=== PATIENT | female | born 1985 | race Caucasian/White ===

== ENCOUNTER 2024-01-02 13:07 | Outpatient (CLI) | payer OTHER, SELFPAY ==
--- NOTE | 2024-01-02 13:23 | ECG_ITS ---
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 Measurements Intervals [place] Rate: 66 P: 23 NH: 134 QRS: 11 QRSD: 98 T: 32 QT: 403 QTc: 422 Interpretive Statements SINUS RHYTHM NORMAL ELECTROCARDIOGRAM No previous ECG available for comparison Electronically Signed On 01-02-2024 14:59:39 CDT by Shaw Kraft M.D.
[2024-01-02 13:37] LABS: Hematocrit 43.2 % (37.0-47.0); Hemoglobin 14.9 g/dL (12.0-15.0)
== END 2024-01-02 13:08 | disposition home or self-care (01) ==
LOC: ANHSURGERY 13:14
PROVIDERS: Anesthesiology; Visit Provider Surgery Plastic and Reconstructive Surgery
DX: Z01.818 Encounter for other preprocedural examination (principal); Z41.1 Encounter for cosmetic surgery
CPT/HCPCS: 36415; 85014; 85018; 93005

== ENCOUNTER 2024-01-13 00:52 | Day surgery (SDC) | payer OTHER, SELFPAY ==
[2023-12-30 14:11] VITALS: BMI 26.8
--- NOTE | 2023-12-30 14:23 | PC.NURSE ---
Report to the Outpatient Waiting Room, entrance under the green pavilion located off [facility], at time 0600 on date 01/13/2024. Planned Procedure Time: 7:30a.m. Time changes happen often and if your time is changed the preop area will call you the afternoon before. - You and your visitor will be asked to self-screen and do not enter if you have any COVID symptoms. - A mask is optional within the hospital at this time. Patients may have clear liquids (water, carbonated beverages, clear teas, apple juice) until 3 hours prior to surgery with a maximum of 20 ounces. - No food from midnight until time of surgery - Infants may have breast milk until 4 hours before surgery, formula 6 hours prior to surgery. - Children will be allowed to drink immediately following surgery. If applicable, please bring a bottle or sippy cup to assist with drinking. Juice, water, soda, and popsicles are readily available. For infants on formula, please bring formula the day of surgery. Pacifiers are allowed. Take the following medications with a SIP of water the morning of surgery: N/A DO NOT STOP ANY OF YOUR OTHER PRESCRIPTION MEDICATIONS PRIOR TO SURGERY ?EXCEPT THE FOLLOWING Medications to discontinue per physician N/A Date to take last dose: N/A Please no make-up, nail welsh, hairspray, perfume, deodorant, or body powder the day of surgery. No jewelry (including any body piercings) or valuables the day of surgery, leave them at home. Please take a shower or bath the night before, or the morning of, surgery with an antibacterial soap. Wear comfortable, loose fitting clothing. Children are encouraged to wear pajamas. - Jewelry must be removed prior to entering the operating room. Rings and piercings that are not removed may be cut off. - The hospital will not accept responsibility for valuables. - Please leave all valuables, including medications, at home the day of surgery. If you are going home after surgery, a licensed bulk driver must drive you home. - NO public transportation without another adult if you receive anesthesia. - We recommend that an adult stay with you for 24 hours following discharge. - We also recommend that you do not drive, make important decision, drink alcoholic beverages, or take any drugs that were not prescribed by your health care provider for at least 24 hours after your discharge time. For Pediatric surgeries, we recommend two adults accompany the child home. Follow any additional instructions given to you from your surgeon. If you or anyone in your household have experienced Covid symptoms in the past week, please notify your surgeon or the nurse liaison at the phone number below for possible testing. Telephone instructions given to Loreta Dacosta and asked if any additional questions and then verbalized understanding. Patient advised to call surgeon office or pre surgery nurse liaison [phone] if any additional questions.
[2024-01-13] VITALS (11 sets, daily range): BP systolic 101–127; BP diastolic 60–83; PULSE 85–113; RESP 14–18; TEMP 36.4; O2SAT 97–100; BMI 26.2
[2024-01-13 06:39] LABS: Urine Cotinine NEGATIVE
[2024-01-13] MEDS: LACTATED RINGERS 1,000 ML 30 ML IV CONT ×2 (06:49→13:30)
--- NOTE | 2024-01-13 07:23 | P.PNAN_ITS ---
Anes - Initial Pre Proc Eval Procedure: Operation Date: 01/13/24 07:30 Proposed Procedures p Bilateral Breast Implant Removal with Capsulectomy - Aaron Dickinson MD s Bilateral Breast Mastopexy - Aaron Dickinson MD s Abdominoplasty with Liposuction - Aaron Dickinson MD Date/Time: 01/13/24 07:23 Surgeon: Aaron Dickinson MD Pre Op Diagnosis: breast ptosis, skin laxity, hx of breast aug Patient Data Age: 38 Gender: F Height: 1.65 m Weight: 71.45 kg Last Vital Signs Temp 97.6 F 01/13/24 06:43 Pulse 85 01/13/24 06:43 Resp 16 01/13/24 06:43 BP 120/83 01/13/24 06:43 Pulse Ox 100 01/13/24 06:43 O2 Del Method Room Air 01/13/24 06:43 Allergies Allergy/AdvReac Type Severity Reaction Status Date / Time cefaclor [From Ceclor] Allergy Hives Verified 12/30/23 14:09 Home Medications Medication Instructions Recorded Confirmed Type No Home Medications 12/30/23 01/13/24 History Laboratory Tests 01/13/24 06:22 Cotinine Negative Patient hx anesthesia problems: post op nausea/vomiting Family hx anesthesia problems: none Results Review: All pre-operative results and documents have been reviewed as part of the pre- operative evaluation. [facility] Social History Social History Smoking status: Never smoker Alcohol intake: current Alcohol use details: Ocassional Substance use: never Substance use type: does not use Living arrangements: with family Anes - Eval Final PreProcedure Day of Procedure 01/13/24 07:23 Patient weight: normal Heart: regular rate and rhythm Lungs: clear to auscultation Airway: Mallampati scale class II Neurological: alert and oriented Last oral intake: >/= 8 hours ASA classification: I Emergent: no Anesthetic plan: proceed Anesthesia type and monitoring: general ETT and standard monitoring Results Review: All pre-operative results and documents have been reviewed as part of the pre- operative evaluation. Informed Consent: The patient's anesthetic plan and its attendant risks and benefits were discussed with the patient/family/POA. Questions were solicited and answers provided to the satisfaction of the patient/family/POA.
--- NOTE | 2024-01-13 07:23 | WPDHPUPDATE1 ---
History and Physical Update Update Date/Time: 01/13/24 07:23 History and Physical has been reviewed, including an updated exam of the patient. There are NO changes in the patient's condition. Risks, benefits, and alternatives have been discussed and questions answered. Patient agrees to proceed with procedure.
--- NOTE | 2024-01-13 07:23 | W.PM.PROC2 ---
Procedure Note - Detailed Date of Procedure 01/13/24 Pre-op Diagnosis breast ptosis, skin laxity, hx of breast aug Post-op Diagnosis Same Procedure Performed 1. Bilateral breast implant removal with capsulectomy. 2. Bilateral mastopexy 3. Progressive tension abdominoplasty with suction lipectomy Surgeon Aaron Dickinson MD Anesthesia General Findings Previous implants: Smooth saline. No worrisome features. Inverted T Superior Pedicle Tissue removed: 1586.6 grams Lipoaspirate: 2650 cc Description of Procedure They are here today for the above procedures. Previously and again today the risks, benefits, alternatives were discussed in extensive detail. I wanted them to be very realistic about the risks involved as well as expectations. She states she would be happy with breasts the same size or even smaller stating you can't make me too small . We discussed aftercare and what to monitor for. I was very upfront about the risks of wound breakdown leading to loss of skin, open wounds, and need for additional procedures with permanent abdominal deformity. We discussed DVT/PE risks and management. Made sure answered all of their questions to their satisfaction today and consent was obtained. They were marked in the preoperative holding area with their verification. The patient was taken to the operating room. Anesthesia was provided by anesthesiology. A Edwards catheter was started. Posterior Placed prone on the operating room table with care taken to protect from injury. Prepped and draped in a standard sterile fashion. A surgical time-out was taken. Stab incisions were made and tumescent solution was infiltrated. Once adequate time was allowed for hemostasis a 5mm basket and 3mm multi hole cannula were utilized to complete suction lipectomy based on S.A.F.E. technique in multiple planes and passes. Suction lipectomy continued to result based on pre-operative planning, intra-operative observation, and rolling pinch test which were in full agreement. Port sites closed with 3-0 Nylon. Band-aid placed. Breast Patient was then placed supine with care taken to protect from injury. Eleven blade was utilized to make a stab incision and infiltrated with low volume tumescent solution laterally. A 10 blade was used to make an incision along the IMF and dissection continued until the capsule was identified. I elevated superficial to the capsule and removed a significant portion of the capsule and implant. Copiously irrigated with saline solution on TUR tubing. Verified a strict hemostasis. I tailor tacked the breast into position. Placed her in a sitting position. Verified the nipple-areolar location based on preoperative planning as well as intraoperative observations and measurements in full agreement. She was placed supine. I de-epithelialized the pedicle. I elevated medial and lateral tissue flaps as well for planned closure. The autoaugmentation flap was sutured to the chest wall with 2-0 PDS. I closed along the IMF with 2-0 Stratafix. Along the vertical with 2-0 PDS. I closed around the Kwesi with 3-0 strata fix. 3-0 Monocryl along the vertical. 3-0 Stratafix along the IMF. I finally closed everything with running subcuticular 4-0 Monocryl and tissue glue. Abdomen I placed the patient in a flexed position to verify the upper and lower markings would reach. I then placed supine. A thorough abdominal examination was completed. Stab incisions were made and tumescent solution infiltrated. Stab incisions were made and tumescent solution was infiltrated. Once adequate time was allowed for hemostasis a 5mm basket and 3mm multi hole cannula were utilized to complete suction lipectomy based on S.A.F.E. technique in multiple planes and passes. Suction lipectomy continued to result based on pre-operative planning, intra-operative observation, and rolling pinch test which were in full agreement. A 10 blade was used to
[2024-01-13] MEDS: CLINDAMYCIN 900 MG/D5W 50 ML 900 MG/50 ML PIGGYBACK 50 MG IVPB ×2 (07:37→13:04)
[2024-01-13] MEDS: TRANEXAMIC ACID 1,000MG/ISO100 1,000 MG/100 ML BAG 200 MG IVPB (07:52)
--- NOTE | 2024-01-13 09:59 | SUR.OPER ---
liposuction back [phone] to [phone].
--- NOTE | 2024-01-13 10:48 | SUR.OPER ---
abdominoplasty liposuction start 10:48
[2024-01-13] MEDS: BUPIVACAINE/EPINEPHRINE 0.5% 10 ML VIAL 60 ML INFILTRATE (11:30)
[2024-01-13] MEDS: LACTATED RINGERS IRRIG 1,000 ML, LIDOCAINE HCL 1% LOCAL INJ 50 ML, EPINEPHrine HCL INJ ... INFILTRATE (13:01)
[2024-01-13] MEDS: fentaNYL CITRATE INJ (*CRX) 100 MCG/2 ML VIAL 25 MCG IV PUSH ×4 (13:57→14:06)
[2024-01-13] MEDS: diphenhydrAMINE HCl INJ 50 MG/ML VIAL 12.5 MG IV PUSH (14:40)
[2024-01-13] MEDS: oxyCODONE HCL (*CRX) 5 MG TAB IR PO (15:20)
== END 2024-01-13 16:30 | disposition home or self-care (01) ==
PROVIDERS: Visit Provider Surgery Plastic and Reconstructive Surgery
PROC: (CPT 19342; principal; 2024-01-13 07:30)
PROC: (CPT 19316; 2024-01-13 07:30)
PROC: (CPT 19371; 2024-01-13 07:30)
DX: Z41.1 Encounter for cosmetic surgery (principal); N64.81 Ptosis of breast; L57.4 Cutis laxa senilis
CPT/HCPCS: 19371; 19316; 15830; 15847; 15877; 36415; 80307; 86850; 86900; 86901; 88304; A9270; J0171; J1100; J1170; J1200; J2250; J2371; J2405; J2704; J3010; J7120